=== PATIENT | female | born 1950 | race Caucasian/White ===

== ENCOUNTER 2016-06-27 02:18 | Observation (INO) | payer MEDICARE, OTHER ==
[~2016-06-27] VITALS: Ht 160 cm; Wt 69.5 kg
[2016-06-27] MEDS ORDERED: SODIUM CHLORIDE 0.9% 1L BAG IV* ONE (02:39)
[2016-06-27] MEDS ORDERED: ACETAMINOPHEN 325 MG TAB PO ONE (02:44)
[2016-06-27 02:45] LABS: URINE BLOOD (Dip) POC 2+ (NEGATIVE)
[2016-06-27] MEDS ORDERED: TIMO5DRO30 BOTH EYES (03:18)
[2016-06-27] MEDS ORDERED: IBUP200C PO (03:19)
[2016-06-27] MEDS ORDERED: ICOS1CAP PO (03:20)
[2016-06-27 03:21] LABS: ADD SCAN DIFF NO
[2016-06-27] MEDS ORDERED: VALS160T20 PO (03:21)
[2016-06-27] MEDS ORDERED: HYD25 PO (03:21)
[2016-06-27] MEDS ORDERED: LOVA10TA PO (03:23)
[2016-06-27] MEDS ORDERED: DAPA10TA PO (03:23)
[2016-06-27] MEDS ORDERED: TRAZ50TA18 PO (03:24)
[2016-06-27] MEDS ORDERED: MELO7.5O PO (03:25)
[2016-06-27] MEDS ORDERED: MELO-110 PO (03:26)
[2016-06-27] MEDS ORDERED: CHOL100062 PO (03:27)
[2016-06-27 03:28] LABS: BASOPHILS % 0.2 % (0.0-2.0); EOSINOPHILS # 0.1 10^3/ul (0.0-0.5); HEMATOCRIT 37.4 % (37.0-47.0); HEMOGLOBIN 12.4 g/dl (12.0-16.0); LYMPHOCYTES # 0.7 10^3/ul (0.8-2.9); LYMPHOCYTES % 11.7 % (15.0-51.0); MEAN CORPUSCULAR HEMOGLOBIN 28.8 pg (29.0-33.0); MEAN CORPUSCULAR HGB CONC 33.2 g/dl (32.0-37.0); MEAN PLATELET VOLUME 11.7 fl (7.4-10.4); MONOCYTE # 0.1 10^3/ul (0.3-0.9); NEUTROPHIL # 5.2 10^3/ul (1.6-7.5); NEUTROPHILS % 84.8 % (39.0-77.0); PLATELET COUNT 159 10^3/UL (140-415); RED CELL DISTRIBUTION WIDTH 12.6 % (11.5-14.5); WHITE BLOOD COUNT 6.1 10^3/ul (4.8-10.8)
[2016-06-27 03:34] LABS: ALBUMIN 3.9 g/dl (3.3-4.9); INR 1.17; PT RATIO 1.2
[2016-06-27 03:35] LABS: POTASSIUM 3.8 mmol/L (3.5-5.1)
[2016-06-27 03:37] LABS: ALBUMIN/GLOBULIN RATIO 1.08; CREATININE 1.01 mg/dl (0.44-1.00); TOTAL PROTEIN 7.5 g/dl (6.1-8.1)
[2016-06-27 03:38] LABS: CALCIUM 8.9 mg/dl (8.4-10.2)
[2016-06-27 03:43] LABS: ADD UMIC YES; URINE BILIRUBIN (Dip) NEGATIVE (NEGATIVE); URINE BLOOD (Dip) 2+ (NEGATIVE); URINE COLOR LT. YELLOW (YELLOW); URINE GLUCOSE (Dip) >=1000 % (NEGATIVE); URINE KETONES (Dip) 15 (NEGATIVE); URINE LEUKOCYTE ESTERASE (Dip) 2+ (NEGATIVE); URINE NITRITE (Dip) POSITIVE (NEGATIVE); URINE TOTAL PROTEIN (Dip) 1+ (NEGATIVE); URINE UROBILINOGEN (Dip) 1.0 E.U./dL (0.1-1.0)
[2016-06-27 03:47] LABS: TROPONIN-I 0.117 ng/ml (0.00-0.12)
[2016-06-27 03:58] LABS: BACTERIA,URINE MANY; SQUAMOUS EPITHELIAL CELL,UR FEW
--- NOTE | 2016-06-27 04:13 | RADRPT ---
PROCEDURE: Chest. CLINICAL INDICATION: Chest pain. TECHNIQUE: Single frontal view of the chest was obtained. COMPARISON: None. FINDINGS: The cardiac silhouette is within normal limits. The aortic arch is unremarkable. There is no focal consolidation, vascular congestion or pleural effusion. There is no pneumothorax. IMPRESSION: No evidence for active cardiopulmonary disease. .Jan Strange MD, MD Date Time Electronically viewed and signed by .Jan Strange MD, on 06/27/2016 04:13 .T/
[2016-06-27] MEDS ORDERED: CEFTRIAXONE 1 GM/50 ML (PMX) 50 ML IVPB ONE (04:30)
--- NOTE | 2016-06-27 04:48 | ERA ---
ER Documentation Chief Complaint Date/Time DATE: 06/27/16 TIME: 04:47 Chief Complaint cough x 3 days, fever since yesterday, chills, altered mental status today HPI 66-year-old female comes in with fevers and chills along with lethargy and tiredness for the family. She has been complaining fevers chills for the past 2 days and became very lethargic today. Mild nausea no vomiting. No sick contacts. No other current complaints. ROS All systems reviewed and are negative except as per history of present illness. Medications Home Meds Reported Medications Cholecalciferol* (Vitamin D3*) 1,000 Unit Tablet, 1000 UNIT PO DAILY, TAB 06/27/16 Meloxicam* (Mobic*) 15 Mg Tablet, 15 MG PO DAILY, #30 TAB 06/27/16 Trazodone Hcl* (Trazodone Hcl*) 50 Mg Tablet, 50 MG PO DAILY, #60 TAB 06/27/16 Dapagliflozin Propanediol (Farxiga) 10 Mg Tablet, 10 MG PO DAILY, #30 TAB 06/27/16 Lovastatin* (Mevacor*) 10 Mg Tablet, 40 MG PO HS, TAB 06/27/16 Valsartan* (Diovan*) 160 Mg Tablet, 160 MG PO DAILY, TAB 06/27/16 Hydrochlorothiazide* (Hydrochlorothiazide*) 25 Mg Tab, 25 MG PO QAM, #30 TAB 06/27/16 Icosapent Ethyl (VASCEPA) 1 Gm Capsule, 2 GM PO 2CAPS BID, CAP 06/27/16 Ibuprofen* (Ibuprofen*) 200 Mg Capsule, 200 MG PO QID Y for PAIN, CAP 06/27/16 Timolol Maleate* (Timoptic*) 0.5%-5ml Opht, 1 DROP BOTH EYES BID, #1 EA 06/27/16 Discontinued Reported Medications Meloxicam* (Meloxicam*) 7.5 Mg/5 Ml Oral.susp, 15 MG PO DAILY, #300 ML 06/27/16 Allergies Allergies: Coded Allergies: No Known Allergy (Unverified , 06/27/16) PMhx/Soc Medical and Surgical Hx: pt denies Surgical Hx History of Surgery: No Hx Neurological Disorder: No Hx Respiratory Disorders: No Hx Cardiac Disorders: Yes (HTN, DYSLIPIDEMIA) Hx Psychiatric Problems: No Hx Miscellaneous Medical Probl: No Hx Alcohol Use: No Hx Substance Use: No Hx Tobacco Use: No Smoking Status: Never smoker Physical Exam Vitals Vital Signs Date Time Temp Pulse Resp B/P Pulse Ox O2 Delivery O2 Flow Rate FiO2 06/27/16 02:40 101.1 90 20 100/58 96 Room Air 06/27/16 02:21 104.1 103 20 121/72 97 Physical Exam Const: [] Head: Atraumatic Eyes: Normal Conjunctiva ENT: Normal External Ears, Nose and Mouth. Neck: Full range of motion..~ No meningismus. Resp: Clear to auscultation bilaterally Cardio: Regular rate and rhythm, no murmurs Abd: Soft, non tender, non distended. Normal bowel sounds Skin: No petechiae or rashes Back: No midline or flank tenderness Ext: No cyanosis, or edema Neur: Awake and alert Psych: Normal Mood and Affect Result Diagram: 06/27/16 0250 06/27/16 0250 Results 24 hrs Laboratory Tests Test 06/27/16 02:46 06/27/16 02:48 06/27/16 02:50 06/27/16 03:02 Bedside Urine pH (LAB) 7.0 Bedside Urine Protein (LAB) 2+ Bedside Urine Glucose (UA) 0.50% Bedside Urine Ketones (LAB) 1+ Bedside Urine Blood 2+ Bedside Urine Nitrite (LAB) Positive Bedside Urine Leukocyte Esterase (L Trace Urine Color LT. YELLOW Urine Clarity SLIGHTLY CLOUDY Urine pH 7.0 Urine Specific [place] 1.015 Urine Ketones 15 Urine Nitrite POSITIVE Urine Bilirubin NEGATIVE Urine Urobilinogen 1.0 E.U./dL Urine Leukocyte Esterase 2+ Urine Microscopic RBC 2-5/HPF Urine Microscopic WBC >200/HPF Urine Squamous Epithelial Cells FEW Urine Bacteria MANY Urine Hemoglobin 2+ Urine Glucose >=1000% Urine Total Protein 1+ White Blood Count 6.110^3/ul Red Blood Count 4.3010^6/ul Hemoglobin 12.4g/dl Hematocrit 37.4% Mean Corpuscular Volume 87.0fl Mean Corpuscular Hemoglobin 28.8pg Mean Corpuscular Hemoglobin Concent 33.2g/dl Red Cell Distribution Width 12.6% Platelet Count 90403^3/UL Mean Platelet Volume 11.7fl Neutrophils % 84.8% Lymphocytes % 11.7% Monocytes % 2.0% Eosinophils % 1.0% Basophils % 0.2% Nucleated Red Blood Cells % 0.0/100WBC Neutrophils # 5.210^3/ul Lymphocytes # 0.710^3/ul Monocytes # 0.110^3/ul Eosinophils # 0.110^3/ul Basophils # 0.010^3/ul Nucleated Red Blood Cells # 0.010^3/ul Prothrombin Time 15.0Sec Prothrombin Time Ratio 1.2 INR International Normalized Ratio 1.17 Activated Partial Thromboplast Time 27.0Sec Sodium Level 139mmol/L Potassium Level 3.8mmol/L Chloride Level 103mmol/L Carbon Dioxide Level 26mmol/L Anion Gap 14 Blood Urea Nitrogen 21mg/dl Creatinine 1.01mg/dl Glucose Level 117mg/dl Lactic Acid Level 1.4mmol/L Calcium Level 8.9mg/dl Total Bilirubin 1.0mg/dl Direct Bilirubin 0.00mg/dl Indirect Bilirubin 1.0mg/dl Aspartate Amino Transf (AST/SGOT) 26IU/L Alanine Aminotransferase (ALT/SGPT) 26IU/L Alkaline Phosphatase 84IU/L Troponin I 0.117ng/ml Total Protein 7.5g/dl Albumin 3.9g/dl Globulin 3.60g/dl Albumin/Globulin Ratio 1.08 Bedside Glucose 105mg/dL Current Medications Medications (Trade) Dose Ordered Sig/Dianelys Route PRN Reason Start Time Stop Time Status Last Admin Dose Admin Sodium Chloride (NS) 2,150 ml BOLUS OVER 2 HOURS ONCE IV* 06/27/16 02:39 06/27/16 02:44 DC 06/27/16 03:19 Acetaminophen 650 mg 650 mg ONCE ONCE PO 06/27/16 02:44 06/27/16 02:45 DC 06/27/16 03:19 Ceftriaxone Sodium (Rocephin) 50 ml @ 100 mls/hr ONCE ONCE IVPB 06/27/16 04:30 06/27/16 04:59 06/27/16 04:45 Procedures/MDM EKG: Rate/Rhythm: [Normal Sinus Rhythm] QRS, ST, T-waves: [No changes consistent w/ acute ischemia] Impression: [No evidence of ischemia or arrhythmia] Chest X-ray 1V Interpreted by me: Soft Tissue: No acute abnormalities Bones: No acute abnormalities Mediastinum/Cardiac Silhouette/Lungs: [No acute abnormalities] Medical decision making: This is a 66-year-old female has what looks to be acute early pyelonephritis. She is to start on Rocephin. Patient will be admitted to hospitalist to the [facility] floor. Blood and urine cultures pending. Initial lactic acid negative Departure Diagnosis: Primary Impression: Fever Qualified Code: R50.9 - Fever, unspecified fever cause Additional Impression: Pyelonephritis Condition: Stable MARK YAP June 27, 2016 04:48
[2016-06-27] MEDS ORDERED: NACL 0.9% 3 ML SYG IV SCH (06:30)
[2016-06-27] MEDS ORDERED: ONDANSETRON 4 MG INJ IV PRN (06:30)
[2016-06-27] MEDS ORDERED: ACETAMINOPHEN 325 MG TAB PO PRN (06:30)
[2016-06-27] MEDS ORDERED: morphine 2 MG INJ IV PRN (06:30)
--- NOTE | 2016-06-27 06:44 | HP ---
Date/Time of Note Date/Time of Note DATE: 06/27/16 TIME: 06:24 Assessment/Plan VTE Prophylaxis VTE Prophylaxis Intervention: heparin Lines/Catheters IV C[facility] Type (from [facility] Peripheral IV Central line still needed: No Urinary Cath still in place: No Assessment/Plan Chief Complaint/Hosp Course This is a 66-year-old female being admitted to [facility] for: #1 UTI: Urinary tract infection versus possible pyelonephritis, patient had a temp of 101 upon admission and positive UA for nitrites and leuk esterase. We will treat with Rocephin 1 g every 24 hours. Patient also on exam has some mild costovertebral angle tenderness which could be early onset of pyelonephritis Right now will order renal ultrasound. IV fluids. Zofran for nausea, morphine for pain. Await urine cultures to help guide antibiotic therapy. Tylenol for fevers #2 Left CVA tenderness to palpation: Possibly early onset pyelonephritis. Currently on IV Rocephin. Will obtain renal ultrasound. #3 hypertension: Currently stable continue home medications of Diovan hydrochlorothiazide #4 hyperlipidemia, continue home medication #5 questionable diabetes, patient has sparsely on her med rec however she denies diabetes will obtain hemoglobin A1c. #6 history of eye abnormality, patient unsure of what kind of eye problems she has, will continue timolol and try to confirm what the exact disease processes is. #7 DVT GI prophylaxis, heparin, Protonix Problems: HPI/ROS Admit Date/Time Admit Date/Time 06/27/2016 Hx of Present Illness This is a 66-year-old female coming in today to the hospital with 2 days of feeling sick. Patient states that for the last 2 days she has felt sick she felt disoriented she also had some subjective fevers at home. In the ED patient was documented of having a fever of 101 oral. Patient also states that she has been having increased urination and dysuria. She denies having these symptoms happen her before. Because of the fact. Her daughter states that when she started shivering last night when she brought her mom to the hospital. She denies any chest pain or shortness of breath. She denies any headaches. Allergies: None Medications see MAR ROS Const: Fever, chills Eyes : No pain discharge or redness or change in visual acuity ENT: No pain, sore throat, congestion, congestion, dysphagia or discharge Respiratory: No shortness of breath, cough, sputum, wheezing, or pleuritic pain Cardiovascular: No chest pain, palpitation, PND, or edema GI : Left-sided abdominal pain on and off Genitourinary: Urinary frequency, urgency, dysuria Musculoskeletal: No joint pain, back pain, neck pain, restricted range of motion in neck or joints Skin: No rash, bruising or hives Neuro: No headache, dizziness, syncope, seizure, focal weakness Endocrine: No polyuria, polydipsia, temperature intolerance Psych: No hallucination, depression, anxiety or suicidal ideation PMH/Family/Social Past Medical History Hypertension, hyperlipidemia, patient did not mention diabetes however for vicki was on her med rec) Past Surgical History No surgeries Past Surgical Hx: no surgical history Family History Significant Family History: other (Mom: Hypertension, stroke) Social History Alcohol Use: none Smoking Status: Never smoker Drug Use: none Exam/Review of Systems Vital Signs Vitals Vital Signs Date Time Temp Pulse Resp B/P Pulse Ox O2 Delivery O2 Flow Rate FiO2 06/27/16 05:30 101.1 78 20 111/60 97 Room Air Exam Exam General: This is a well-developed female in no acute distress The patient is alert oriented -3 lying comfortably in bed. HEENT: Atraumatic, normocephalic. The pupils are equal, round and reactive. Extraocular motor are intact Neck: Supple with full range of motion. No rigidity or meningismus Chest: Nontender Lungs: Clear to auscultation bilaterally no crackles rales or wheezing Heart: Normal S1-S2, Regular rhythm and rate. No murmur, Abdomen: Soft , nontender, nondistended , bowel sounds are present. No guarding no rebound tenderness , No masses or organomegaly. Extremities: Normal to inspection, no edema no cyanosis Neurologic: Normal mental status, speech normal, cranial nerves II through XII are intact, motor and sensory are intact, no focal weakness Genitourinary: Left CVA tenderness to palpation Additional Comments Chest x-ray IMPRESSION: No evidence for active cardiopulmonary disease. Labs Result Diagram: 06/27/16 0250 06/27/16 0250 Medications Medications Current Medications Sodium Chloride (NS) 1,000 ml @ 80 mls/hr [id number] IV ; Start 06/27/16 at 06:11; Status UNV Ondansetron HCl (Zofran Inj) 4 mg Q6H PRN IV NAUSEA AND/OR VOMITING; Start 06/27 at 06:30; Status UNV Acetaminophen (Tylenol Tab) 650 mg Q6H PRN PO PAIN LEVEL 1-3 OR FEVER; Start at 06:30; Status UNV Morphine Sulfate (morphine) 2 mg Q4H PRN IV SEVERE PAIN LEVEL 7-10; Start at 06:30; Status UNV Heparin Sodium (Porcine) (Heparin (5000 Units/0.5 ml)) 5,000 unit Q8 SC ; Start 06/27/16 at 06:30; Status UNV Hydrochlorothiazide (Hydrochlorothiazide) 25 mg QAM PO ; Start 06/27/16 at 09:00 ; Status UNV Timolol Maleate (Timoptic 0.5%) 1 drop BID BOTH EYES ; Start 06/27/16 at 09:00; Status UNV Trazodone HCl (Desyrel) 50 mg DAILY PO ; Start 06/27/16 at 09:00; Status UNV Valsartan (Diovan) 160 mg DAILY PO ; Start 06/27/16 at 09:00; Status UNV Miscellaneous Information 40 mg HS PO ; Start 06/27/16 at 21:00; Status UNV WILLIAM MYERS June 27, 2016 06:35
[2016-06-27] MEDS: SOD CHLORIDE 0.9% 1,000 ML IV SCH ×2 (06:58→18:44)
[2016-06-27] MEDS: HEPARIN 5,000 UNIT/0.5 ML VIAL SC SCH ×3 (07:06→22:07)
--- NOTE | 2016-06-27 08:10 | RADRPT ---
PROCEDURE: US Renal CLINICAL INDICATION: Possible pyelonephritis, hydronephrosis. TECHNIQUE: Multiple sonographic images of the kidneys and bladder were obtained. Evaluation of th e kidneys and bladder was performed as well with kendrick scale and color and Doppler evaluation using a curved array transducer. The images were reviewed on a high-resolution PACS workstation. COMPARISON: No prior studies are available for comparison. FINDINGS: The right kidney measures 9.3 cm. The left kidney measures 12.0 cm. There is normal echogenicity within the parenchyma of the kidneys bilaterally. There is no mass, calculus, or obstructive uropathy. No perinephric fluid collection is seen. Evaluation of the urinary bladder is unremarkable. There is incidental visualization of a 11.6 x 9.0 x 10.0 cm septated right adnexal cyst. IMPRESSION: 1. Unremarkable renal ultrasound. No evidence of hydronephrosis. 2. Incidental visualization of a 11.6 x 10.0 x 9.0 cm right adnexal septated cyst. This may be of ovarian origin. Further evaluation with pelvic ultrasound may help further delineate the finding. RPTAT: [facility] Physician Bernice Date Time Electronically viewed and signed by Physician Bernice on 06/27/2016 08:10 /
[2016-06-27] MEDS: HYDROCHLOROTHIAZIDE 25 MG TAB PO SCH (08:51)
[2016-06-27] MEDS: traZODone 50 MG TAB PO SCH (08:51)
[2016-06-27] MEDS: VALSARTAN 160 MG TAB PO SCH (08:52)
[2016-06-27] MEDS: TIMOLOL 0.5% 5 ML OPH BOTH EYES SCH ×2 (09:03→21:00)
--- NOTE | 2016-06-27 14:23 | EN ---
Date/Time of Note Date/Time of Note DATE: 06/27/16 TIME: 14:20 Event Note Medicine Medicine Event Note Patient still has mild abdominal discomfort No nausea no vomiting Pending bed for admission Vital signs within normal limits GENERAL: Well-nourished well-developed lady comfortable at rest VITAL SIGNS: per chart NECK: Supple. No JVD or lymphadenopathy. CARDIAC EXAM: S1, S2. No added sounds or murmurs. CHEST: clear bilaterally, No added sounds, rales or wheezes ABDOMEN: Soft, nontender. No guarding or rebound. EXTREMITIES: No cyanosis, clubbing or edema. NEUROLOGIC: Generalized weakness. No focal deficits. Renal ultrasound unremarkable Assessment 1. Urinary tract infection 2. Mild sepsis 3. History of hyperlipidemia Plan 1. Continue Rocephin pending urine cultures 2. Continue DVT GI prophylaxis Anticipate discharge tomorrow SATNAM COLVIN MD, [facility] June 27, 2016 14:23
[2016-06-27 17:07] VITALS: PULSE 76; TEMP 98
[2016-06-27 18:02] VITALS: BP 137/62; RESP 16
[2016-06-27 18:58] VITALS: Ht 160 cm; Wt 69.5 kg
[2016-06-27 20:25] VITALS: BP 119/57; RESP 18
[2016-06-27] MEDS ORDERED: ATORVASTATIN 10 MG TAB PO SCH (21:00)
[2016-06-28] MEDS ORDERED: CEFTRIAXONE 1 GM/50 ML (PMX) 50 ML IVPB SCH (05:00)
[2016-06-28 05:38] LABS: ADD SCAN DIFF NO
[2016-06-28 05:49] LABS: BASOPHILS % 0.3 % (0.0-2.0); EOSINOPHILS # 0.1 10^3/ul (0.0-0.5); HEMATOCRIT 35.8 % (37.0-47.0); HEMOGLOBIN 11.6 g/dl (12.0-16.0); LYMPHOCYTES # 0.9 10^3/ul (0.8-2.9); LYMPHOCYTES % 13.8 % (15.0-51.0); MEAN CORPUSCULAR HEMOGLOBIN 28.7 pg (29.0-33.0); MEAN CORPUSCULAR HGB CONC 32.4 g/dl (32.0-37.0); MEAN CORPUSCULAR VOLUME 88.6 fl (82.0-101.0); MONOCYTE # 0.5 10^3/ul (0.3-0.9); MONOCYTES % 7.6 % (0.0-11.0); NEUTROPHIL # 4.9 10^3/ul (1.6-7.5); PLATELET COUNT 133 10^3/UL (140-415); RED BLOOD COUNT 4.04 10^6/ul (4.20-5.40); RED CELL DISTRIBUTION WIDTH 12.6 % (11.5-14.5); WHITE BLOOD COUNT 6.3 10^3/ul (4.8-10.8)
[2016-06-28] MEDS ORDERED: PANTOPRAZOLE (EC) 40 MG TAB PO SCH (06:00)
[2016-06-28] MEDS: SOD CHLORIDE 0.9% 1,000 ML IV SCH ×2 (07:11→09:51)
[2016-06-28 07:35] VITALS: BP 136/60; RESP 18
[2016-06-28] MEDS: TIMOLOL 0.5% 5 ML OPH BOTH EYES SCH (09:00)
[2016-06-28 09:35] LABS: POTASSIUM 3.6 mmol/L (3.5-5.1)
[2016-06-28 09:37] LABS: CREATININE 0.78 mg/dl (0.44-1.00)
[2016-06-28 09:38] LABS: CALCIUM 8.3 mg/dl (8.4-10.2)
[2016-06-28 09:39] LABS: CHOL/HDL RATIO 3.1 RATIO
[2016-06-28] MEDS: traZODone 50 MG TAB PO SCH (09:47)
[2016-06-28] MEDS: VALSARTAN 160 MG TAB PO SCH (09:49)
[2016-06-28] MEDS: HYDROCHLOROTHIAZIDE 25 MG TAB PO SCH (09:49)
--- NOTE | 2016-06-28 10:38 | PDOCDIS ---
Discharge Instructions DIAGNOSIS Discharge Diagnosis: Urinary tract infection. CONDITION Patient Condition: Good HOME CARE INSTRUCTIONS: Diet Instructions: RegularSpecial Diet: LOW FAT, LOW CHOL ACTIVITY: Activity Restrictions: No Restrictions FOLLOW UP/APPOINTMENTS Appointments Primary care 1 week. SATNAM COLVIN MD, [facility] June 28, 2016 10:38
--- NOTE | 2016-06-28 11:27 | DS ---
DATE OF ADMISSION: 06/27/2016 DATE OF DISCHARGE: 06/28/2016 DISCHARGE DIAGNOSIS: Urinary tract infection. HOSPITAL COURSE: This is a 66-year-old lady who presents with 2-day history of left flank discomfor t and dysuria, found on admission to have positive urinalysis, but no significant leukocytosis. Ini tial cultures showed gram-negative rods. The patient was commenced on ceftriaxone, states symptoms have improved significantly. Renal ultrasound was performed and demonstrated no evidence of hydrone phrosis. The patient remains stable at time of discharge. DISCHARGE DIET: Regular. FOLLOWUP: With primary care physician. DISCHARGE MEDICATIONS: Levaquin 500 mg p.o. daily. Dictated By: SATNAM SAXENA/VIKASH Conf#: [id number] DID#: [id number]
== END 2016-06-28 15:10 | disposition home or self-care (01) ==
LOC: E/R 02:18 → MS2 10:37 → INTOOBSV 10:37
PROVIDERS: ADMIT Family Medicine; ATTEND Family Medicine
DX: N39.0 Urinary tract infection, site not specified (principal); I10 Essential (primary) hypertension; E78.5 Hyperlipidemia, unspecified
CPT/HCPCS: 36415; 71010; 76775; 80048; 80053; 80061; 81001; 82962; 83036; 83605; 84484; 85025; 85610; 85730; 87040; 87086; 93005; 96365; 96372; 96374; 99285; G0378; J0696; J1644; J7030; 81003; 99217

== ENCOUNTER 2018-01-18 11:54 | Emergency (ER) | END 2018-01-18 16:43 | disposition home or self-care (01) ==